=== PATIENT | male | born 1955 | race Two or more races ===

== ENCOUNTER → 2017-03-10 | Outpatient (CLI) | payer SELFPAY ==
--- NOTE | 2017-03-10 15:54 | RAD ---
Indication abnormality seen on the film. AP and lateral views of the right femur were obtained. There are some degenerative changes involving the femoral head. No acute bony finding is seen. There is a chondroid lesion in the distal femoral diaphysis. 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 Low-grade chondrosarcoma is not excluded. Further evaluation could be obtained with MRI or bone scan. Knee joint effusion is noted. IMPRESSION: No acute finding. Chondroid lesion distal right femoral diaphysis. See above discussion Knee joint effusion
== END | disposition home or self-care (01) ==
LOC: RAD 15:10
PROVIDERS: ATTEND Physician Assistant Surgical
DX: M25.561 Pain in right knee (principal); M25.461 Effusion, right knee
CPT/HCPCS: 73552